=== PATIENT | female | born 1965 | race Caucasian/White ===

== ENCOUNTER → 2017-08-29 16:38 | Outpatient (CLI) | payer OTHER, SELFPAY ==
[2017-08-29 17:52] LABS: Thyroid Stim Hormone (TSH) 1.64 uIU/mL (0.358-3.74)
== END ==
LOC: LAB.FUTURE 16:38
PROVIDERS: Family Provider Family Medicine; PCP Family Medicine; Visit Provider Family Medicine
DX: E03.4 Atrophy of thyroid (acquired) (principal)
CPT/HCPCS: 36415; 84443

== ENCOUNTER → 2019-01-16 13:15 | Outpatient (CLI) | payer SELFPAY ==
[2019-01-16 15:17] LABS: Hemoglobin A1c 5.3 % (4.2-6.3)
== END ==
LOC: LAB.FUTURE 13:16 → LAB 13:25
PROVIDERS: Family Provider Family Medicine; PCP Family Medicine; Referring Provider Family Medicine; Visit Provider Family Medicine
DX: R73.09 Other abnormal glucose (principal); E03.4 Atrophy of thyroid (acquired)
CPT/HCPCS: 36415; 83036

== ENCOUNTER → 2019-01-17 10:43 | Outpatient (CLI) | payer SELFPAY ==
[2019-01-17 12:48] LABS: ALB/GLOB Ratio 0.9 RATIO (0.9-2.4); AST(SGOT) 11 U/L (15-37); Alanine Aminotransfer ALT/SGPT 18 U/L (13-56); Albumin, Serum 3.6 g/dL (3.2-5.0); Alkaline Phosphatase 77 U/L (45-117); Anion Gap 7 (5-15); BUN 27 mg/dL (7-18); BUN/Creat Ratio 34.2 RATIO (10-20); Calcium,Total 9.7 mg/dL (8.5-10.1); Chloride 106 mmol/L (98-107); Creatinine, Serum 0.79 mg/dL (0.55-1.02); EST Glomerular Filtration Rate 81 mL/min (>60); Est Glom Filt Rate - Afr Amer 99 mL/min (>60); Globulin 3.9 g/dL (2.2-4.2); Glucose 98 mg/dL (74-106); Potassium 4.4 mmol/L (3.5-5.1); Protein, Total 7.5 g/dL (6.4-8.2); Sodium Level 140 mmol/L (136-145); Thyroid Stim Hormone (TSH) 4.19 uIU/mL (0.358-3.74)
== END ==
LOC: LAB 10:43
PROVIDERS: Family Provider Family Medicine; PCP Family Medicine; Referring Provider Family Medicine; Visit Provider Family Medicine
DX: R73.09 Other abnormal glucose (principal); E03.4 Atrophy of thyroid (acquired)
CPT/HCPCS: 80053; 84443

== ENCOUNTER → 2019-04-09 17:54 | Outpatient (CLI) | payer SELFPAY ==
[2019-04-09 18:41] LABS: Thyroid Stim Hormone (TSH) 5.83 uIU/mL (0.358-3.74)
== END ==
LOC: LAB 17:55
PROVIDERS: PCP Family Medicine; Referring Provider Family Medicine; Visit Provider Family Medicine
DX: R07.9 Chest pain, unspecified (principal); E03.4 Atrophy of thyroid (acquired)
CPT/HCPCS: 36415; 84443; 84484

== ENCOUNTER → 2019-05-01 13:57 | Outpatient (CLI) | payer SELFPAY ==
--- NOTE | 2019-05-01 14:02 | ECHOD_ITS ---
Reason For Study: CHEST PAIN Procedure This was a 2D Doppler, Color Flow transthoracic echocardiogram. Exam performed in department. Left Ventricle Normal LV size. The estimated ejection fraction is 60 %. No evidence for diastolic dysfunction. No regional wall motion abnormalities noted. Right Ventricle Normal RV size. Normal systolic function. Atria Normal left atrium. Normal right atrium. No doppler evidence for ASD. Mitral Valve There is no mitral valve stenosis. No mitral valve insufficiency. Tricuspid Valve There is no tricuspid stenosis. Trivial tricuspid valve insufficiency. Pulmonary artery systolic pressure is 25 mmHg. Aortic Valve Trisinus/trileaflet aortic valve. There is no aortic stenosis. No aortic valve insufficiency. Pulmonic Valve There is no pulmonic valvular stenosis. Trivial pulmonic valve insufficiency. Great Vessels Normal aortic root. Pericardium/Pleural No pericardial effusion. MMode/2D Measurements & Calculations LVIDd: 4.3 cm IVSd: 0.81 cm Ao root diam: 3.4 cm LVIDs: 2.8 cm LVPWd: 0.80 cm RVDd: 3.2 cm FS: 34.6 % LAV(MOD-bp): 41.7 ml LA A4 area: 15.7 cm2 LA dimension(2D): 2.7 cm LAV(MOD-bp) Indexed: 24.0 ml/m2 LAV(MOD-sp2): 40.8 ml LAV(MOD-sp4): 41.5 ml RA A4 area: 11.8 cm2 Time Measurements MV dec time: 0.24 sec Doppler Measurements & Calculations MV E max edil: 99.0 cm/sec Lat Peak E' Edil: 10.5 cm/sec Med Peak E' Edil: 8.1 cm/sec MV A max edil: 83.5 cm/sec E/E' lat: 9.5 E/E' med: 12.3 MV E/A: 1.2 Ao V2 max: 122.4 cm/sec LV V1 max: 103.5 cm/sec TR max edil: 225.2 cm/sec Ao max P.0 mmHg LV V1 max P.3 mmHg TR max P.3 mmHg Interpretation Summary The estimated ejection fraction is 60 %. No evidence for diastolic dysfunction. Trivial tricuspid valve insufficiency. Pulmonary artery systolic pressure is 25 mmHg. Ordering Physician: Lázaro Mendenhall Referring Physician: Lázaro Mendenhall Performed By: Priscilla Harman, KINCS, RVT
== END ==
LOC: CVS 14:00
PROVIDERS: PCP Family Medicine; Referring Provider Family Medicine; Visit Provider Family Medicine
DX: R07.9 Chest pain, unspecified (principal)
CPT/HCPCS: 93306

== ENCOUNTER → 2021-10-19 | Outpatient (CLI) | payer SELFPAY ==
--- NOTE | 2021-10-19 17:08 | RAD_ITS ---
EXAM: XR LEFT ANKLE COMPLETE, 3 OR MORE VIEWS CLINICAL INDICATION: INJURY OF L ANKLE Technologist Notes PT STATES HER DOG T-BONED HER LEFT ANKLE. PAIN RADIATES UP LEFT LEG AND THROUGHOUT ANKLE JOINT. TECHNIQUE: Frontal, lateral and oblique views of the left ankle. This report was created using [employer] report generation technology. COMPARISON: None. FINDINGS: BONES/JOINTS: See below. SOFT TISSUES: Soft tissue swelling in the dorsum of the foot. Small avulsive fracture fragment of the dorsal aspect of the navicular bone. No radiopaque foreign body. RAD/Ankle min 3 Views IMPRESSION: Soft tissue swelling in the dorsum of the foot. Small avulsive fracture fragment of the dorsal aspect of the navicular bone. Electronically Signed: Filemon Goldsmith MD at 20:15 EDT Reading Location ID and State: [facility] / [place] , Service support ,
== END | disposition home or self-care (01) ==
LOC: RAD 17:02
PROVIDERS: PCP Family Medicine; Referring Provider Family Medicine; Visit Provider Family Medicine
DX: S99.912A Unspecified injury of left ankle, initial encounter (principal)
CPT/HCPCS: 73610

== ENCOUNTER → 2022-04-11 | Outpatient (CLI) | payer MEDICARE, SELFPAY ==
--- NOTE | 2022-04-11 12:37 | BI_ITS ---
MAMMOGRAPHY - BILATERAL SCREENING REASON FOR EXAM: Female, 57 years old. Routine annual screening examination. PERTINENT HISTORY: Non-contributory. TECHNIQUE: Digital bilateral breast flora (3D mammographic acquisition) in the CC and MLO projections. 2-D mediolateral oblique (MLO) and craniocaudad (CC) views of both breasts were obtained. CAD: Full Field Digital Mammography with Computer Added Detection was performed. COMPARISON: None. Baseline examination. FINDINGS: Breast Composition: There are scattered areas of fibroglandular density. There is an 8.2 mm x 10.4 mm nodular density in the slightly upper lateral aspect of the left breast. Correlation with ultrasound is recommended. No other significant abnormalities are identified. BI/SCRN MAMM (CAD)W/FLORA BILAT IMPRESSION: 8.2 mm x 10.4 mm nodular density in the slightly upper lateral aspect of the left breast. Correlation with ultrasound is recommended. ASSESSMENT CATEGORY: BIRADS Category 0: Incomplete. Need additional imaging evaluation. A letter regarding these results will be sent to the patient by the facility within 30 days. Approximately 10% of breast cancers are not detected by mammography. A normal mammogram should not delay biopsy of a clinically suspicious abnormality. [id number] Electronically Signed: Mane Carolina MD at 13:33 EST ,
== END | disposition home or self-care (01) ==
PROVIDERS: PCP Family Medicine; Visit Provider Family Medicine
DX: Z12.31 Encounter for screening mammogram for malignant neoplasm of breast (principal)
CPT/HCPCS: 77063; 77067

== ENCOUNTER → 2022-04-14 | Outpatient (CLI) | payer MEDICARE, SELFPAY ==
--- NOTE | 2022-04-14 09:32 | US_ITS ---
STUDY: ULTRASOUND BREAST - LEFT REASON FOR EXAM: Female, 57 years old. Abnormal screening mammogram. TECHNIQUE: Axial and longitudinal images of the LEFT breast were performed with a high resolution ultrasound transducer. # OF IMAGES: 53 COMPARISON: Comparison is made with prior mammogram dated 04/11/2022. FINDINGS: LEFT Breast: There is a 1.2 cm x 1 cm x 0.4 cm cyst in the slightly upper lateral aspect of the left breast. This corresponds to the mammographic findings. There is also evidence of dilated ducts. There is also evidence of a 4 mm x 3 mm x 2 mm cyst at the 3 o''clock position the breast at 6 cm from the nipple. US/Breast Limited Unilateral IMPRESSION: 2 small cysts are seen in the upper-outer quadrant of the left breast as described. Routine mammographic follow-up is recommended. ASSESSMENT CATEGORY: BIRADS Category 2: Benign. A letter regarding these results will be sent to the patient by the facility within 30 days. Electronically Signed: Mane Carolina MD at 8:52 EST ,
== END | disposition home or self-care (01) ==
LOC: OPUS 09:30
PROVIDERS: PCP Family Medicine; Referring Provider Family Medicine; Visit Provider Family Medicine
DX: N63.0 Unspecified lump in unspecified breast (principal); R92.8 Other abnormal and inconclusive findings on diagnostic imaging of breast
CPT/HCPCS: 76642

== ENCOUNTER → 2022-08-31 | Outpatient (CLI) | payer MEDICARE, SELFPAY ==
--- NOTE | 2022-08-31 18:03 | MRI_ITS ---
STUDY: MRI LEFT ANKLE WITHOUT CONTRAST REASON FOR EXAM: Female, 57 years old. Ankle pain. Evaluate for ligamentous tears. TECHNIQUE: Standardized fat and water weighted pulse sequences were obtained in all 3 orthogonal planes. COMPARISON: Ankle x-rays dated. October 19, 2021. FINDINGS: Normal subcutis adipose space. Normal posterior tibialis tendon. Normal flexor digitorum longus tendon. Normal flexor hallucis longus tendon. Normal peroneus longus and brevis tendons. Normal tibialis anterior tendon. Normal extensor hallucis longus tendon. Normal extensor digitorum longus tendons. Normal Achilles tendon and teno-osseous insertion. Normal plantar fascia. Normal plantar calcaneal tubercles. Normal intrinsic muscles of the rearfoot. Normal distal tibiofibular syndesmotic ligamentous complex. Normal lateral ligamentous complex. Normal subtalar ligaments and sinus tarsi. Normal deltoid ligamentous complexes. Normal plantar calcaneonavicular (spring) ligament. Tibiotalar joint effusion with small posterior ganglion cyst (sagittal series 8 images 7-12). Normal talar dome. Marked arthrosis of the subtalar joint with subchondral cyst formation and adjacent subchondral bone marrow edema (sagittal series 8 images 4-11, coronal series 9 images 8-15). Normal talonavicular articulation. Normal calcaneocuboid articulation. Normal navicular-cuneiform articulations. 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 Small tibiotalar joint effusion with posterior ganglion cyst. No other abnormality identified. Electronically Signed: See Aguero MD at 16:14 EDT ,
== END | disposition home or self-care (01) ==
LOC: MRI 17:57
PROVIDERS: PCP Family Medicine; Referring Provider Student in an Organized Health Care Education/Training Program; Visit Provider Student in an Organized Health Care Education/Training Program
DX: S82.435D Nondisplaced oblique fracture of shaft of left fibula, subsequent encounter for closed fracture with routine healing (principal); S92.902D Unspecified fracture of left foot, subsequent encounter for fracture with routine healing; M79.662 Pain in left lower leg
CPT/HCPCS: 73721

== ENCOUNTER 2025-01-30 04:54 | Emergency (ER) | payer MEDICARE, SELFPAY ==
[2025-01-30 04:55] VITALS: BP 140/83; PULSE 103; RESP 27; TEMP 36.4; O2SAT 98
[2025-01-30] MEDS: Albuterol 2.5 MG/3 ML VIAL.NEB. INHALATION (05:15)
[2025-01-30 05:17] VITALS: PULSE 88; RESP 18
--- NOTE | 2025-01-30 05:21 | EDS_ITS ---
HPI History of Present Illness Chief Complaint: Shortness of Breath Informant: patient and spouse/S.O. Narrative Narrative: Patient is a 59-year-old female with history of tobacco abuse COPD bipolar disorder and hypothyroidism. She states she has had 2 to 3 days of nasal congestion and cough. She reports she has been using her home inhaler with minimal symptom improvement. She states she felt that this morning symptoms were worsening and not responding to the inhaler and secondary to this she comes in for evaluation [facility] Medical History (Updated 01/30/25 @ 07:[address] Kenrick Mathur, DO) Hypothyroidism (acquired) Depression Bipolar disease, chronic Dry eye syndrome Environmental and seasonal allergies Chronic obstructive pulmonary disease Intermittent asthma without complication Menopausal symptom GERD (gastroesophageal reflux disease) Constipation Home Medications Medication Instructions Recorded Last Taken Type aspirin 81 mg tablet 81 mg PO QDAY 10/11/24 Unkno wn History fluticasone propionate 100 1 inh inhalation Q12H 10/11 Unknown History mcg/actuation blister powder for inhalation levothyroxine 150 mcg capsule 150 mcg PO QDAY 10/11/24 Unknown History montelukast 10 mg tablet 10 mg PO QHS 10/11/24 Unknow n History omeprazole 20 mg capsule,delayed 20 mg PO QDAY 5 Unknown History release albuterol sulfate 90 mcg/actuation 2 puff inhalation Q 4H PRN PRN 01/30/25 Unknown Rx aerosol inhaler (Ventolin HFA) Wheezing #1 device diazepam 5 mg tablet (Valium) 5 mg PO TID PRN anxiety 5 days #15 01/30/25 Unknown Rx tabs prednisone 20 mg tablet 40 mg (2 x 20 mg) PO DAILY 5 days 01/30/25 Unknown Rx #10 tabs Allergy/AdvReac Type Severity Reaction Status Date / Time insect venom (yellow jacket) Allergy Intermediate Other Verified 01/30/25 04:55 Family History (Updated 10/11/24 @ 13:26 by Nano Smith) Mother Asthma Diabetes COPD (chronic obstructive pulmonary disease) Liver cirrhosis Sister Anemia Surgical History Tubal ligation status History of arthroscopy of left shoulder H/O total hysterectomy History of delivery Social History (Updated 10/11/24 @ 13:27 by Nano Smith) Smoking Status: Former smoker quit date: 08/19/23 alcohol intake: never ROS ROS ED Constitutional Constitutional ED: Denies chills or fever(s) Eyes Eyes: Denies change in vision ENT ENT ED: Reports rhinorrhea and sore throat Cardiovascular Cardiovascular: Denies chest pain Respiratory/Chest Respiratory/Chest: Reports cough and dyspnea Gastrointestinal Gastrointestinal: Denies abdominal pain, diarrhea, nausea or vomiting Genitourinary Genitourinary ED: Denies dysuria Musculoskeletal Musculoskeletal: Reports myalgias Integumentary Denies rash Neurologic Neurologic: Denies headache(s) Psychiatric Psychiatric: Reports anxiety Hematologic/Lymphatic Hematologic/Lymphatic: Denies easy bleeding or easy bruising Allergic/Immunologic Allergic/Immunologic ED: Denies mouth swelling or tongue swelling EXAM Physical Exam Const Vital Signs: 01/30/25 04:55 01/30/25 05:05 01/30/25 05:17 Temperature 97.5 F L Temperature Source Temporal Pulse Rate 103 H 88 Respiratory Rate 27 H 18 Respiratory Effort Short of Breath Blood Pressure 140/83 H Blood Pressure Mean 102 Pulse Ox 98 Oxygen Delivery Method Room Air 01/30/25 06:56 Temperature 98.0 F Temperature Source Pulse Rate 80 Respiratory Rate 16 Respiratory Effort Blood Pressure 118/69 Blood Pressure Mean 85 Pulse Ox 93 Oxygen Delivery Method Positive well nourished and well developed General Appearance ED: well developed; Negative for pallor HEENT HEENT Narrative: Normocephalic atraumatic Nasal mucosa is hyperemic and boggy No tongue or lip swelling no oral lesions no airway edema or compromise Cobblestoning is noted in the posterior pharynx consistent with sinus drainage; no secondary findings to suggest infection Eyes PERRL and EOMs intact bilaterally General Eye ED: Negative for scleral icterus Neck supple and no JVD Resp Resp Narrative: Patient is tachypneic and breath sounds are diminished throughout with diffuse inspiratory and expiratory wheezing Cardio regular rate and regular rhythm Extremity normal to inspection Neuro oriented x3, CN's II-XII intact bilaterally and no sensory deficits noted Sensorium / Orientation: alert Motor Exam: strength 5/5 throughout Psych Mood & Affect: anxious Skin no rashes or lesions noted General Skin Exam: Negative for jaundice or pallor MDM MDM MDM Narrative Medical decision making narrative: Patient arrived to the ER satting 98 to 100% on room air but had increased work of breathing. Her exam and symptoms are most consistent with viral upper respiratory tract infection leading to a COPD exacerbation. We discussed swabbing for COVID influenza and RSV but patient does not want this performed. A chest x-ray was ordered to rule out pneumonia versus pneumothorax versus vascular congestion. X-ray revealed no acute finding. After receiving steroids and breathing treatments her work of breathing and breath sounds greatly improved and she reported feeling much better. Therefore at this time as she does not have pneumonia or hypoxia or need for noninvasive ventilation such as BiPAP I do not feel the need for further work and she is otherwise safe for discharge with symptomatic care History & Record Review Discussion w/independent historian: Patient and Significant other Radiography Diagnostic Testing: Clinical Impression(s) from Imaging Studies Chest X-Ray 01/30/25 05:31 IMPRESSION: No evidence for acute abnormality. Reading Location: [place] [id number] Chest x-ray as interpreted by the emergency medicine physician reveals no acute infiltrate pneumothorax or pleural effusion Discharge Plan Triage Chief Complaint: Shortness of Breath ED Provider: Kenrick Mathur Dx/Rx/DC Orders Clinical Impression: Acute exacerbation of chronic obstructive pulmonary disease, Hypothyroidism, Bipolar disorder Instructions: COPD: Wheezing and Chest Tightness Prescriptions: New prednisone 20 mg tablet 40 mg PO DAILY 5 Days Qty: 10 0RF albuterol sulfate [Ventolin HFA] 90 mcg/actuation HFA aerosol inhaler 2 puff inhalation Q4H PRN PRN (Reason: Wheezing) Qty: 1 0RF diazepam [Valium] 5 mg tablet 5 mg PO TID PRN (Reason: anxiety) 5 Days Qty: 15 0RF No Action levothyroxine 150 mcg capsule 150 mcg PO QDAY fluticasone propionate 100 mcg/actuation blister with device 1 inh inhalation Q12H montelukast 10 mg tablet 10 mg PO QHS omeprazole 20 mg capsule,delayed release(DR/EC) 20 mg PO QDAY aspirin 81 mg tablet 81 mg PO QDAY Primary Care Provider: Montserrat Taylor Referrals: Montserrat Taylor, [employer] [Primary Care Provider, Family Practice] Activity Restrictions/Additional Instructions: Please continue to use the albuterol inhaler to control bronchospasm and the oral steroid to reduce inflammation. Take the Valium to help with both anxiety as well as smooth muscle relaxation which will help you breathe easier. Use antibiotic to cover for any potentially underlying infection but your x-ray today reveals no sign of acute pneumonia. Return to the ER should you have any further concerns Print Language: Mozambican Disposition Disposition: Home, Self Care Discharge Date/Time: 01/30/25 06:57 D/C Safety Score for UGIB Assessment [place] Bleeding Score (GBS): Stratifies upper GI bleeding patients who are "low-risk" and candidates for outpatient management. Hemoglobin, BUN, Recent Vital Signs: Pulse Rate 80 Blood Pressure 118/69 Score Interpretation: Score of 0: A GBS of 0 is a “Low Risk” GI bleed, and is highly sensitive (99.6% in a 2007 retrospective study) for predicting which patients did not require any “medical intervention”: blood transfusion, endoscopy, or surgery. This was confirmed in a 2009 [facility] study where patients with a score of 0 were actually discharged and had no GI bleeding mortality at 6 month followup Score above 0: A GBS greater than zero suggests a “High Risk” GI bleed that is likely to require “medical intervention”: transfusion, endoscopy, or surgery. A higher GBS also correlated with a higher likelihood of needing intervention Scores >/= 6 are associated with >50% risk of needing intervention D/C Safety Score for LGIB Assessment Assessment Tool: Readmission and adverse event risk in patients with acute lower GI bleeding. Hemoglobin and Recent Vital Signs: Pulse Rate 80 01/30/25 06:56 Blood Pressure 118/69 01/30/25 06:56 Score Interpretation: Probability Percentage of safe discharge (absence of rebleeding, blood transfusion, therapeutic intervention, 28 day readmission, or ) Score of 8 or below: Consider discharge, with appropriate precautions. Score of 9 or above: Discharge NOT recommended. Consider admission with further workup and resuscitation as necessary.
--- NOTE | 2025-01-30 05:31 | RAD_ITS ---
PROCEDURE: CHEST PA AND LATERAL 01/30/2025 REASON FOR EXAM: COUGH TECHNIQUE: Procedure Code: RADCXR Modality: DX Procedure: CHEST PA AND LATERAL COMPARISON: None. FINDINGS: The lungs are expanded. There is no demonstrated parenchymal abnormality. There is no demonstrated pleural abnormality. Normal heart and pericardium. Normal mediastinum and cheri. Normal visualized pulmonary arteries. Normal visualized aortic arch and descending thoracic aorta. Normal visualized thoracic spine. Normal visualized ribs, clavicles, and shoulders. There is no demonstrated abnormality of the visualized soft tissue structures of the upper abdomen. RAD/Chest PA and Lateral IMPRESSION: No evidence for acute abnormality. Reading [facility]
--- OUTSIDE RECORDS SUMMARY | 2025-01-30 06:02 | XMS RPT_ITS | CCD ---
Author Organization [facility] Care Team Providers Care Lens Gauger Name Role Phone Lázaro Mendenhall Unavailable Solange Tracy Unavailable Unavailable Lázaro Mendenhall Primary Care Provider Lázaro Mendenhall Attending Unavailable Lázaro Mendenhall Referring Unavailable Lázaro Mendenhall Primary Care Unavailable Lázaro Mendenhall Attending Unavailable Lázaro Mendenhall Referring Unavailable Lázaro Mendenhall Primary Care Unavailable Lázaro Mendenhall Attending Unavailable Lázaro Mendenhall Primary Care Unavailable Bakari Mai Attending Unavailable Bakari Mai Referring Unavailable Lázaro Mendenhall Primary Care Unavailable DAYANARA MCKEON Consulting Unavailable REGGIE SLAUGHTER APRN Attending Unavailable REGGIE SLAUGHTER APRN Primary Care Unavailable REGGIE SLAUGHTER APRN Admitting Unavailable PROVIDER, UNKNOWN Consulting Unavailable PROVIDER, UNKNOWN Consulting Unavailable PROVIDER, UNKNOWN Consulting Unavailable Allergies Allergy Classification Reported Allergen(s) Allergy Type Date of Onset Reaction(s) Facility (1 source) buPROPion Drug Allergy 1 Swelling [facility] Work Phone: (1 source) Latex Propensity to adverse reactions 8 Rash [facility] Work Phone: (1 source) environmental allergies [Other] Propensity to adverse reactions 1 Itching [facility] Work Phone: Medications Current Medications Medication Drug Class(es) Dates Sig (Normalized) Sig (Original) buPROPion (1 source) Aminoketone Wellbutrin Quant ity: 0 Refills: 0 Ordered: 21-Sep-2020 Carleen Champion Generic Substitution Allowed cyclobenzaprine hydrochloride 5 mg oral tablet (1 source) Muscle Relaxant Start: 09-21-2020 End: 09-25-2020 take 1 tablet by mouth every eight hours cyclobenzaprine 5 mg oral tablet ; 1 tab(s) orally every 8 hours Quantity: 15 Refills: 0 Ordered: 21-Sep-2020 Solange Tracy Start: 21-Sep-2020 End: 25-Sep-2020 Generic Substitution Allowed Comments: Some non-prescription drugs may aggravate your condition. Read all labels carefully. If a warning appears, check with your doctor before taking.This drug may impair the ability to drive or operate machinery. Use care until you become familiar with its effects. Comment on above: Some non-prescriptio n drugs may aggravate your condition. Read all labels carefully. If a warning appears, check with your doctor before taking.This drug may impair the ability to drive or operate machinery. Use care until you become familiar with its effects. ibuprofen 600 mg oral tablet (1 source) Nonsteroidal Anti-inflammatory Drug Start: 09-21-2020 End: 09-30-2020 take 1 tablet by mouth every six hours ibuprofen 600 mg oral tablet ; 1 tab(s) orally every 6 hours Quantity: 40 Refills: 0 Ordered: 21-Sep-2020 Solange Tracy Start: 21-Sep-2020 End: 30-Sep-2020 Generic Substitution Allowed Comments: Do not take this drug if you are .It is very important that you take or use this exactly as directed. Do not skip doses or discontinue unless directed by your doctor.May cause drowsiness or dizziness.Obtain medical advice before taking any non-prescription drugs as some may affect the action of this medication.Take with food or milk. Comment on above: Do not take this micheal g if you are .It is very important that you take or use this exactly as directed. Do not skip doses or discontinue unless directed by your doctor.May cause drowsiness or dizziness.Obtain medical advice before taking any non-prescription drugs as some may affect the action of this medication.Take with food or milk. Completed/Discontinued Medications Medication Drug Class(es) Dates Sig (Normalized) Sig (Original) estradiol 2 mg oral tablet (1 source) Estrogen Start: 12-30-2010 take 1 tablet by mouth once daily estradiol (ESTRACE) 2 mg ORAL tablet Take 1 tablet by mouth once daily. 30 tablet 11 12/30/2010 Active Comment on above: Take 1 tablet by yen th once daily. fexofenadine hydrochloride 180 mg oral tablet (1 source) Histamine-1 Receptor Antagonist take 1 tablet by mouth once daily fexofenadine (TIMOTHY) 180 mg ORAL tablet Take 180 mg by mouth once daily. 0 Active Comment on above: Take 180 mg by mouth once daily. lamoTRIgine 200 mg oral tablet (1 source) Mood Stabilizer, Anti-epileptic Agent Start: 10-30-2008 lamotrigine(LAMICTA L 200 MG TAB) takes 1 at bedtime 0 10/30/2008 Active Comment on above: takes 1 at bedtime levothyroxine sodium 0.088 mg oral tablet (2 sources) l-Thyroxine Start: 10-30-2008 LEVOTHYROXINE 88 MCG TAB Take one(1) tablet daily. 0 10/30/2008 Active Synthroid Quanti ty: 0 Refills: 0 Ordered: 21-Sep-2020 Akira, Carleen Generic Substitution Allowed Comment on above: Take one(1) tablet d aily. LORazepam 0.5 mg oral tablet (1 source) Benzodiazepine Start: 09-18-19 11 take 1 tablet by mouth every eight hours as needed LORazepam (ATIVAN) 0.5 mg ORAL Tab Take 1 tablet by mouth three times daily as needed. 0 09/17/2010 Active Comment on above: Take 1 tablet by yen th three times daily as needed. MULTIVITAMIN TAB (1 source) Start: 10-31-19 09 MULTIVITAMIN TAB Take one(1) tablet daily. 0 10/30/2008 Active Comment on above: Take one(1) tablet d aily. omeprazole 20 mg delayed release oral capsule (2 sources) Proton Pump Inhibitor Start: 11-18-19 09 omeprazole(PRILOSEC 20 MG CAP) Indications: Dyspepsia Take one(1) capsule daily. 30 6 11/17/2008 Active omeprazole Quant ity: 0 Refills: 0 Ordered: 21-Sep-2020 Akira Carleen Generic Substitution Allowed Comment on above: Take one(1) capsule daily. polyethylene glycol 3350 60050 mg powder for oral solution (1 source) Osmotic Laxative Start: 2 Polyethylene Glycol 3350 (MIRALAX) 17 gram/dose ORAL powder Take by mouth once daily. 0 04/07/2011 Active Comment on above: Take by mouth once d aily. sertraline 50 mg oral tablet (2 sources) Serotonin Reuptake Inhibitor Start: 1 take 1 tablet by mouth once daily sertraline (ZOLOFT) 50 mg ORAL tablet Take 1 tablet by mouth once daily. 0 09/17/2010 Active Zoloft Quantity: 0 Refills: 0 Ordered: 21-Sep-2020 Akira, Carleen Generic Substitution Allowed Comment on above: Take 1 tablet by yen th once daily. traZODone hydrochloride 100 mg oral tablet (2 sources) Serotonin Reuptake Inhibitor Start: 10-30-2008 TRAZODONE 100 MG TAB takes 2 at bedtime daily and 1/2 tab in the am 0 10/30/2008 Active traZODone Quanti ty: 0 Refills: 0 Ordered: 21-Sep-2020 Akira, Carleen Generic Substitution Allowed Comment on above: takes 2 at bedtime d aily and 1/2 tab in the am ziprasidone 60 mg oral capsule (1 source) Atypical Antipsychotic Start: 10-30-2008 ziprasidone hcl(GEODON 60 MG CAP) takes 2 at bed time 0 10/30/2008 Active Comment on above: takes 2 at bed time Problems Active Problems Problem Classification Problem Date Documented Da te Episodic/Chronic Fracture of lower limb (1 source) Nondisplaced oblique fracture of shaft of left fibula, subsequent encounter for closed fracture with routine healing; Translations: [Nondisplaced oblique fracture of shaft of left fibula, subsequent encounter for closed fracture with routine healing] Onset: 09-05-2022 Episodic Mood disorders (1 source) Depressive disorder; Translations: [Depression] 09-17-2010 Chronic Other non-traumatic joint disorders (1 source) Pain in wrist; Translations: [Pain in joint, forearm] 09-21-2020 Episodic Thyroid disorders (1 source) Hypothyroidism, unspecified; Translations: [Hypothyroidism, unspecified] Onset: 08-13-2024 Chronic Unclassified (2 sources) LT WRIST INJURY 09-21-2020 Comment on above: LT WRIST INJURY Unclassified (1 source) Acute wrist pain 09-21-2020 Past or Other Problems Problem Classification Problem Date Documented Da te Episodic/Chronic Nonmalignant breast conditions (1 source) Unspecified lump in unspecified breast; Translations: [Unspecified lump in unspecified breast] Onset: 05-20-2022 Episodic Other injuries and conditions due to external causes (1 source) Unspecified injury of left ankle, initial encounter; Translations: [Unspecified injury of left ankle, initial encounter] Onset: 10-23-2021 Episodic Other screening for suspected conditions (not mental disorders or infectious disease) (1 source) Encounter for screening mammogram for malignant neoplasm of breast; Translations: [Encounter for screening mammogram for malignant neoplasm of breast] Onset: 04-20-2022 Episodic Results Test Name Value Interpretation Reference Range Facil ity CMP with eGFRon 08-13-2024 AGE 59 years Normal [facility] Comment on above: Performed By: #### 2 [id number] #### [facility],[address] [place] [address] 49575 Albumin [Mass/Vol] 3.9 g/dL Normal 3.4 - 5.0 [facility] Comment on above: Performed By: #### 2 69448 #### [facility],[address] [place] [address] 67993 Albumin/Globulin [Mass ratio] 1.1 {ratio} Normal 0.9 - 1.6 [facility] Comment on above: Performed By: #### 2 35051 #### [facility],[address] [place] [address] 20105 ALK PHOS 92 U/L Normal 46 - 116 [facility] Comment on above: Performed By: #### 2 18568 #### [facility],[address] [place] [address] 93484 ALT [Catalytic activity/Vol] 20 U/L Normal 16 - 63 [facility] Comment on above: Performed By: #### 2 00387 #### [facility],[address] [place] [address] 08115 Anion gap [Moles/Vol] 17 mmol/L Normal 10 - 20 [facility] Comment on above: Performed By: #### 2 70409 #### [facility],[address] [place] [address] 68742 AST [Catalytic activity/Vol] 18 U/L Normal 13 - 39 [facility] Comment on above: Performed By: #### 2 44675 #### [facility],[address] [place] [address] 22705 B/C RATIO 21 ratio Normal 0 - 30 [facility] Comment on above: Performed By: #### 2 78065 #### [facility],[address] [place] [address] 67361 Bilirubin [Mass/Vol] 0.4 mg/dL Normal 0.2 - 1.0 [facility] Comment on above: Performed By: #### 2 60195 #### [facility],[address] [place] [address] 38617 Calcium [Mass/Vol] 9.8 mg/dL Normal 8.5 - 10.1 [facility] Comment on above: Performed By: #### 2 15705 #### [facility],[address] [place] [address] 89087 Chloride [Moles/Vol] 104 mmol/L Normal 98 - 107 [facility] Comment on above: Performed By: #### 2 47473 #### [facility],[address] [place] [address] 56290 CMP with eGFR Normal [facility] Comment on above: Result Comment: COMP REHENSIVE METABOLIC PANEL Performed By: #### 2 57994 #### [facility],[address] [place] [address] 91495 CO2 [Moles/Vol] 25.3 mmol/L Normal 21.0 - 32.0 [facility] Comment on above: Performed By: #### 2 21900 #### [facility],[address] [place] [address] 37334 Creatinine [Mass/Vol] 0.80 mg/dL Normal 0.55 - 1.02 [facility] Comment on above: Performed By: #### 2 62471 #### [facility],[address] [place] [address] 84565 GFR/1.73 sq M.predicted among non-blacks MDRD (S/P/Bld) [Vol rate/Area] mL/min/{1.73_m2} Normal 60 - 999 [facility] Comment on above: Performed By: #### 2 87148 #### [facility],[address] [place] [address] 05540 Result Comment: ACCO RDING TO THE NATIONAL KIDNEY DISEASE EDUCATION PROGRAM(NKDE), A NORMAL eGFR IS A VALUE GREATER THAN OR EQUAL TO 60 ML/MIN/1.73 SQ METERS. CHRONIC KIDNEY DISEASE: <60mL/MIN/1.73 SQ METERS KIDNEY FAILURE: <15mL/MIN/1.73 SQ METERS THIS TEST SHOULD ONLY BE USED FOR PATIENTS 18 YEARS OF AGE AND OLDER. Globulin (S) [Mass/Vol] 3.4 g/dL Normal 1.5 - 3.8 [facility] Comment on above: Performed By: #### 2 03041 #### [facility],[address] [place] [address] 68072 Glucose [Mass/Vol] 100 mg/dL Normal 74 - 106 [facility] Comment on above: Performed By: #### 2 47107 #### [facility],[address] [place] [address] 64562 Potassium [Moles/Vol] 4.6 mmol/L Normal 3.5 - 5.1 [facility] Comment on above: Performed By: #### 2 01653 #### [facility],[address] [place] [address] 55681 Protein [Mass/Vol] 7.3 g/dL Normal 6.4 - 8.2 [facility] Comment on above: Performed By: #### 2 35233 #### [facility],[address] [place] [address] Sodium [Moles/Vol] 142 mmol/L Normal 136 - 145 [facility] Comment on above: Performed By: #### 2 01567 #### [facility],[address] [place] [address] 69768 Urea nitrogen [Mass/Vol] 17 mg/dL Normal 7 - 18 [facility] Comment on above: Performed By: #### 2 30919 #### [facility],[address] [place] [address] 62386 T4-FREE (FREE THYROXINE)on 08-13-2024 Free T4 [Mass/Vol] 1.26 ng/dL Normal 0.76 - 1.46 [facility] Comment on above: Result Comment: P otential of falsely elevated results when biotin concentrations are > 10 ng/mL. Performed By: #### 2 09435 #### [place] [id number] TSHon 08-13-2024 TSH Qn 1.64 m[IU]/L Normal 0.35 - 3.74 [facility] Comment on above: Performed By: #### 2 71236 #### [place] [id number] Lower Ext Joint Only (Routin e)on 08-31-2022 Lower Ext Joint Only (Routine) [facility] Imaging Services [address] [place] [address] 31431 Lower Ext Joint Only (Routine) MR#: [id number] Acct: [id number] Name: JANUSZ ARREOLA Rep #: [id number] : 1965 F 57 From: See Aguero MD PCP: Dr. Lázaro Mendenhall MD Status: REG CLI Study: Lower Ext Joint Only (Routine) Date of Exam: 0 08/31/22 Exam# [id number] Ordering Dr: Bakari Mai DPClaire STUDY: MRI LEFT ANKLE WITHOUT CONTRAST REASON FOR EXAM: Female, 57 years old. Ankle pain. Evaluate for ligamentous tears. TECHNIQUE: Standardized fat and water weighted pulse sequences were obtained in all 3 orthogonal planes. COMPARISON: Ankle x-rays dated. October 19, 2021. FINDINGS: Normal subcutis adipose space. Normal posterior tibialis tendon. Normal flexor digitorum longus tendon. Normal flexor hallucis longus tendon. Normal peroneus longus and brevis tendons. Normal tibialis anterior tendon. Normal extensor hallucis longus tendon. Normal extensor digitorum longus tendons. Normal Achilles tendon and teno-osseous insertion. Normal plantar fascia. Normal plantar calcaneal tubercles. Normal intrinsic muscles of the rearfoot. Normal distal tibiofibular syndesmotic ligamentous complex. Normal lateral ligamentous complex. Normal subtalar ligaments and sinus tarsi. Normal deltoid ligamentous complexes. Normal plantar calcaneonavicular (spring) ligament. Tibiotalar joint effusion with small posterior ganglion cyst (sagittal series 8 images 7-12). Normal talar dome. Marked arthrosis of the subtalar joint with subchondral cyst formation and adjacent subchondral bone marrow edema (sagittal series 8 images 4-11, coronal series 9 images 8-15). Normal talonavicular articulation. Normal calcaneocuboid articulation. Normal navicular-cuneiform articulations. 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 Small tibiotalar joint effusion with posterior ganglion cyst. No other abnormality identified. Electronically Signed: See Aguero MD at 16:14 EDT , CC: AMILCAR Mai; Dr. Lázaro Mendenhall MD Architect Naval: Signed Normal [facility] Huyen 06-16-2022 CNPN Telephone ([employer]) JANUSZ ARREOLA ([id number]) 1965 F Date Time Provider Department 06/16/22 RADHA ROBERTS During your visit today, we recorded the following information about you: Clari Tierney RN 06/16/2022 11:42 AM Signed Received request from Dr. Lázaro Mendenhall's office for the consultation note for Janusz. Janusz was scheduled to see Dr. Roberts on 05/10/2022, but cancelled that visit and did not reschedule. Note sent to office. Fax confirmation sheet received. Clari Tierney RN Allergies As of Date: 06/16/2022 Noted Allergy Reaction environmental allergies [Other] 09/17/2010 9 - Itching LATEX 08/06/2007 2 - Rash WELLBUTRIN (BUPROPION HCL) 09/17/2010 7 - Swelling Date Reviewed: 12/30/2010 Reviewed by: Zahra Jaimes Lpn - Fully Assessed Reason for Visit: Medical Records [Other] Prescriptions as of 06/16/2022 - Polyethylene Glycol 3350 (MIRALAX) 17 gram/dose ORAL powder Take by mouth once daily. - fexofenadine (TIMOTHY) 180 mg ORAL tablet Take 180 mg by mouth once daily. - estradiol (ESTRACE) 2 mg ORAL tablet Take 1 tablet by mouth once daily. - LORazepam (ATIVAN) 0.5 mg ORAL Tab Take 1 tablet by mouth three times daily as needed. - sertraline (ZOLOFT) 50 mg ORAL tablet Take 1 tablet by mouth once daily. - omeprazole(PRILOSEC 20 MG CAP) Take one(1) capsule daily. - ziprasidone hcl(GEODON 60 MG CAP) takes 2 at bed time - LEVOTHYROXINE 88 MCG TAB Take one(1) tablet daily. - TRAZODONE 100 MG TAB takes 2 at bedtime daily and 1/2 tab in the am - lamotrigine(LAMICTAL 200 MG TAB) takes 1 at bedtime - MULTIVITAMIN TAB Take one(1) tablet daily. Problem List As Of Date 06/16/2022 Noted Resolved Depression [F32.A] Encounter Status:Closed by CLARI TIERNEY on 06/16/22 Normal [facility] CNCOon 04-29-2022 CNCO Letter Text Normal [facility] Breast Limited Unilateralon 04-14-2022 Breast Limited Unilateral [facility] Imaging Services [address] [place] [address] Breast Limited Unilateral MR#: [id number] Acct: [id number] Name: JANUSZ ARREOLA Rep #: [id number] : 1965 F 57 From: Mane haynes MD PCP: Dr. Lázaro Mendenhall MD Status: REG CLI Study: Breast Limited Unilateral Date of Exam: Exam# [id number] Ordering Dr: Lázaro Mendenhall MD STUDY: ULTRASOUND BREAST - LEFT REASON FOR EXAM: Female, 57 years old. Abnormal screening mammogram. TECHNIQUE: Axial and longitudinal images of the LEFT breast were performed with a high resolution ultrasound transducer. # OF IMAGES: 53 COMPARISON: Comparison is made with prior mammogram dated 04/11/2022. FINDINGS: LEFT Breast: There is a 1.2 cm x 1 cm x 0.4 cm cyst in the slightly upper lateral aspect of the left breast. This corresponds to the mammographic findings. There is also evidence of dilated ducts. There is also evidence of a 4 mm x 3 mm x 2 mm cyst at the 3 o''clock position the breast at 6 cm from the nipple. US/Breast Limited Unilateral IMPRESSION: 2 small cysts are seen in the upper-outer quadrant of the left breast as described. Routine mammographic follow-up is recommended. ASSESSMENT CATEGORY: BIRADS Category 2: Benign. A letter regarding these results will be sent to the patient by the facility within 30 days. Electronically Signed: Mane Carolina MD at 8:52 EST , CC: Dr. Lázaro Mendenhall MD Architect Naval: Signed Normal [facility] SCRN MAMM (CAD)W/FLORA BILATo n 04-11-2022 SCRN MAMM (CAD)W/FLORA BILAT [facility] Imaging Services [address] [place] [address] SCRN MAMM (CAD)W/FLORA BILAT MR#: [id number] Acct: [id number] Name: JANUSZ ARREOLA Rep #: [id number] : 1965 F 57 From: Mane haynes MD PCP: Dr. Lázaro Mendenhall MD Status: REG CLI Study: SCRN MAMM (CAD)W/FLORA BILAT Date of Exam: 03/21 06/09 Exam# [id number] Ordering Dr: Lázaro Mendenhall MD MAMMOGRAPHY - BILATERAL SCREENING REASON FOR EXAM: Female, 57 years old. Routine annual screening examination. PERTINENT HISTORY: Non-contributory. TECHNIQUE: Digital bilateral breast flora (3D mammographic acquisition) in the CC and MLO projections. 2-D mediolateral oblique (MLO) and craniocaudad (CC) views of both breasts were obtained. CAD: Full Field Digital Mammography with Computer Added Detection was performed. COMPARISON: None. Baseline examination. FINDINGS: Breast Composition: There are scattered areas of fibroglandular density. There is an 8.2 mm x 10.4 mm nodular density in the slightly upper lateral aspect of the left breast. Correlation with ultrasound is recommended. No other significant abnormalities are identified. BI/SCRN MAMM (CAD)W/FLORA BILAT IMPRESSION: 8.2 mm x 10.4 mm nodular density in the slightly upper lateral aspect of the left breast. Correlation with ultrasound is recommended. ASSESSMENT CATEGORY: BIRADS Category 0: Incomplete. Need additional imaging evaluation. A letter regarding these results will be sent to the patient by the facility within 30 days. Approximately 10% of breast cancers are not detected by mammography. A normal mammogram should not delay biopsy of a clinically suspicious abnormality. [id number] Electronically Signed: Mane Carolina MD at 13:33 EST , CC: Dr. Lázaro Mendenhall MD Architect Naval: Signed Normal [facility] Ankle min 3 Viewson 10-20-19 Ankle min 3 Views [facility] Imaging Services [address] [place] [address] Ankle min 3 Views MR#: [id number] Acct: [id number] Name: JANUSZ ARREOLA Rep #: [id number] : 1965 F 56 From: Filemon Harris PCP: Dr. Lázaro Mendenhall MD Status: REG CLI Study: Ankle min 3 Views Date of Exam: 10/19/21 Exam# [id number] Ordering Dr: Lázaro Mendenhall MD EXAM: XR LEFT ANKLE COMPLETE, 3 OR MORE VIEWS CLINICAL INDICATION: INJURY OF L ANKLE Technologist Notes PT STATES HER DOG T-BONED HER LEFT ANKLE. PAIN RADIATES UP LEFT LEG AND THROUGHOUT ANKLE JOINT. TECHNIQUE: Frontal, lateral and oblique views of the left ankle. This report was created using [facility] report generation technology. COMPARISON: None. FINDINGS: BONES/JOINTS: See below. SOFT TISSUES: Soft tissue swelling in the dorsum of the foot. Small avulsive fracture fragment of the dorsal aspect of the navicular bone. No radiopaque foreign body. RAD/Ankle min 3 Views IMPRESSION: Soft tissue swelling in the dorsum of the foot. Small avulsive fracture fragment of the dorsal aspect of the navicular bone. Electronically Signed: Filemon Goldsmith MD at 20:15 EDT , CC: Dr. Lázaro Mendenhall MD Architect Naval: Signed Normal [facility] Provider Note - ED v2on 0 Provider Note - ED v2 Provider Note - ED v2: Chart Review: ED NOTES ED NOTES: Patient came in with complaints of left wrist pain. Patient says she fell down her stairs and landed on her wrist. Patient says her shoulder and elbow are a little sore but nothing too terrible patient says she is unable to do range of motion with her wrist. States extremely painful 9 out of 10. HISTORY OF PRESENTING ILLNESS JANUSZ is a 55 year old Female and was seen by me at 21-Sep-2020 10:38. The historian is the patient. Triage Information: Most recent Vital Sign Value Date PAST MEDICAL HISTORY ATTESTATION: I have reviewed and confirmed nurse's/medic's notes for patient's medications, allergies, and medical, surgical, family and social history PSYCHOSOCIAL SCREENING: NO: concerns for safety at home, feelings of depression, feels like hurting others and feels like hurting self ALLERGIES/INTOLERANCES: No Known Allergies HEALTH HISTORY: No documented data. OUTPATIENT MEDICATIONS: Home Medications Review Status for Reconciliation: Complete Med Status: Patient Currently Takes Medications Drug Name: Wellbutrin Instructions: null Drug Name: Synthroid Instructions: null Drug Name: traZODone Instructions: null Drug Name: Zoloft Instructions: null Drug Name: omeprazole Instructions: null Drug Name: ibuprofen 600 mg oral tablet Instructions: 1 tab(s) orally every 6 hours Drug Name: cyclobenzaprine 5 mg oral tablet Instructions: 1 tab(s) orally every 8 hours SIGNIFICANT EVENTS: No documented data. CLIENT SERVICES REPRESENTATIVE: Is : no Is : no REVIEW OF SYSTEMS MUSCULOSKELETAL: POSITIVE for: pain All other systems reviewed and are negative RESULTS/VITAL SIGNS RESULTS: Radiology Results: Patient Name: JANUSZ ARREOLA STUDY: Left wrist dated 09/21/2020 INDICATION: fall with pain and swelling COMPARISON: None. ACCESSION NUMBER(S): [id number] ORDERING CLINICIAN: SOLANGE TRACY TECHNIQUE: AP, lateral, oblique, and scaphoid radiograph(s) of the Left wrist. FINDINGS: No fracture or dislocation is evident. Soft tissues are grossly unremarkable. IMPRESSION: No acute osseous injury is evident. VITAL SIGNS: T PRBP SpO2O2(LPM) %FiO2 Method 21-Sep-2020 10:34:[id number] PHYSICAL EXAM CONSTITUTIONAL: Well appearing, well nourished, awake, alert, oriented to person, place, time/situation and in no apparent distress. HENMT: Airway patent, EYES: pupils are accommodating CARDIOVASCULAR: Normal rate, regular rhythm. Heart sounds S1, S2. No murmurs, rubs or gallops. PMI non-displaced. RESPIRATORY: Breath sounds clear and equal bilaterally. GASTROINTESTINAL: Abdomen soft, non-distended, no rebound, no guarding. Bowel sounds normal in all 4 quadrants. GENITOURINARY: No discharge, no lesions. MUSCULOSKELETAL: range of motion limited in left wrist with mild swelling. NEUROLOGICAL: Alert and oriented, no focal deficits, no motor or sensory deficits. SKIN: Skin normal color for race, warm, dry and intact. No evidence of trauma. PSYCHIATRIC: Alert and oriented to person, place, time/situation. normal mood and affect. No apparent risk to self or others. HEME/LYMPH: No adenopathy or splenomegaly. No cervical, supraclavicular or inguinal lymphadenopathy. CLINICAL IMPRESSION Diagnosis/Annotation: ED Dx Name:Acute wrist pain Code:M25.539 Disposition: discharged Type: home ATTESTATION Comments/Additional Findings: Patient's x-ray came back with no acute changes. Patient was called and updated. Patient was given a wrist splint to wear for comfort and told to rest ice and elevate. Patient was okay with this care plan patient will follow up with signs and symptoms seem being worse not better. CRITICAL CARE TIME Is this a critically ill patient: no Electronic Signatures: Solange Tracy (ELECTRICIAN'S ASSISTANT-MAGNETOMETER OPERATOR) (Signed 21-Sep-2020 12:44) Authored: ED Notes, HPI, PMH, ROS, PE, Results/Vital Signs, Clinical Impression, Attestation, Chart Review, Scores Last Updated: 21-Sep-2020 12:44 by Solange Tracy (ELECTRICIAN'S ASSISTANT-MAGNETOMETER OPERATOR) [facility] WRIST COMPLT MIN 3 VIEWSon 0 09-21-2020 WRIST COMPLT MIN 3 VIEWS Patient Name: JANUSZ ARREOLA STUDY: Left wrist dated 09/21/2020 INDICATION: fall with pain and swelling COMPARISON: None. ACCESSION NUMBER(S): [id number] ORDERING CLINICIAN: SOLANGE TRACY TECHNIQUE: AP, lateral, oblique, and scaphoid radiograph(s) of the Left wrist. FINDINGS: No fracture or dislocation is evident. Soft tissues are grossly unremarkable. IMPRESSION: No acute osseous injury is evident. Electronically signed by: ELVA CHUNG MD [facility] Vital Signs Date Time Vital Sign Value Performing Clinician Facility 09-21-2020 12:34-0400 Body height 157.4 cm Lázaro Mendenhall Other Phone: [facility] 09-21-2020 12:34-0400 Body temperature 98.06 [degF] Lázaro Mendenhall Other Phone: [facility] 09-21-2020 12:34-0400 Diastolic blood pressure 87 mm[Hg] Lázaro Mendenhall Other Phone: [facility] 09-21-2020 12:34-0400 Heart rate 80 /min Lázaro Mendenhall Other Phone: [facility] 09-21-2020 12:34-0400 Respiratory rate 16 /min Lázaro Mendenhall Other Phone: [facility] 09-21-2020 12:34-0400 SaO2% (BldA) [Mass fraction] 97 % Lázaro Mendenhall Other Phone: [facility] 09-21-2020 12:34-0400 Systolic blood pressure 121 mm[Hg] Lázaro Mendenhall Other Phone: [facility] Encounters Encounter Date Encounter Type Care Provider Facility Start: 08-13-2024 End: 08-13-2024 ambulatory DAYANARA MCKEON [facility] Start: 08-13-2024 Encounter for genera l adult medical examination without abnormal findings [facility] Start: 08-31-2022 End: 08-31-2022 Patient encounter procedure [facility] Start: 08-31-2022 End: 08-31-2022 ambulatory Bakari Mai [facility] Work Phone: Start: 06-16-2022 Telephone encounter Radha Gaviria MD Work Phone: General Surgery Comment on above: Medical Records Start: 04-14-2022 End: 04-14-2022 [facility] Work Phone: Start: 04-14-2022 End: 04-14-2022 Patient encounter procedure [facility] Ultrasound Start: 04-11-2022 End: 04-11-2022 ambulatory Lázaro [facility] Work Phone: Start: 04-11-2022 End: 04-11-2022 Patient encounter procedure [facility]-Outpatient Breast Imaging Start: 10-19-2021 End: 10-19-2021 Patient encounter procedure [facility]-Rad[facility], [facility] Start: 10-19-2021 End: 10-19-2021 ambulatory Lázaro Mendenhall Facility:[facility] Start: 09-21-2020 End: 09-21-2020 Emergency department patient visit Solange Tracy [facility] 02 Procedures Date Procedure Procedure Detail Performing Clinician Start: 08-31-2022 MRI of joint of lowe r extremity Start: 04-14-2022 Ultrasonography of breast Start: 04-11-2022 Screening mammography Start: 10-19-2021 Radiography of ankle Start: 01-13-2011 Mammography Radha Roberts MD Work Phone: Plan of Treatment Date Care Activity Detail Author Start: 03-20-2022 DEPRESSION ASSESSMENT DEPRESSION ASS ESSMENT [facility] Start: 11-18-2021 Influenza vaccination INFLUENZA (#1) [facility] Start: 2017 SHINGRIX VACCINE (1 of 2) SHINGRIX V ACCINE (1 of 2) [facility] Start: 06-21-2012 HPV TESTING HPV TESTING [facility] Start: 06-21-2012 PAP TESTING PAP TESTING [facility] Start: 2012 COLOGUARD (FIT-DNA) COLOGUARD (FIT-D NA) [facility] Start: 2012 Colonoscopy COLONOSCOPY [facility] Start: 2012 COLORECTAL CANCER SCREENING COLORECTAL CANCER SCREENING [facility] Start: [address] COLONOGRAPHY [facility] Start: 2012 DIABETES SCREEN DIABETES SCREEN [facility] Start: 2012 FECAL OCCULT BLOOD FECAL OCCULT BLOO D [facility] Start: 2012 LIPID SCREEN LIPID SCREEN [facility] Start: 2012 SIGMOIDOSCOPY SIGMOIDOSCOPY [facility] Start: 01-14-2012 Mammography MAMMOGRAM [facility] Start: 1986 Urine microalbumin profile DTAP,TDAP ,TD (1 - Tdap) [facility] Start: 1985 HEPATITIS C SCREENING HEPATITIS C SC REENING [facility] Start: 1985 HIV SCREENING HIV SCREENING [facility] Start: 1967 COVID-19 VACCINE (#1) COVID-19 VACCI NE (#1) [facility] Start: 1967 HEPATITIS B (1 of 3 - 3-dose series) HEPATITIS B (1 of 3 - 3-dose series) [facility] Payers Date Payer Category Payer Medicare UHC MEDICARE UHC [employer] PPO [id number] 2022-Present [phone] [address] [address] [place] [address] PPO [id number] 2021 Unknown [id number] 2021 Self-pay [id number] 2021 Unknown [id number] 1965 Unknown [id number] Unknown See Registration System\SELF PAY Medicare MEDICARE PART A B [id number] Medicare [id number] Unknown [id number] Unknown [id number] Unknown [id number] Unknown [id number] Unknown [id number] Social History Date Type Detail Facility [facility] Start: 03-11-2014 End: 03-11-2014 Tobacco smoking consumption unknown [facility] Start: 1965 Sex Assigned At Female [facility] Start: 12-30-2010 [facility] History of tobacco use Cigarette Smoker C [facility] Start: 12-30-2010 Cigarettes smoked current (pack per day) - Reported 1 [facility] Start: 12-30-2010 Tobacco use and exposure Smokeless tobacco non-user [facility] Start: 12-30-2010 Alcohol intake Current drinke r of alcohol (finding) [facility] Start: 09-17-2010 Alcohol Comment ocas/social [facility] Start: 1965 Sex Assigned At Not on file C [facility] Note 06-16-2022 Telephone Encounter - Clari Tierney RN - 06/16/2022 11:40 AM EDT Note Date & Type Note Facility 06-16-2022 Miscellaneous Notes Formattin g of this note might be different from the original. Received request from Dr. Lázaro Mendenhall's office for the consultation note for Janusz. Janusz was scheduled to see Dr. Roberts on 05/10/2022, but cancelled that visit and did not reschedule. Note sent to office. Fax confirmation sheet received. Clari Tierney RN documented in this encounter [facility] Evaluation note Note Date & Type Note Facility Evaluation note No assessment information availa ble [facility] Work Phone: Summary Purpose Family History No Family History Records FoundNo Family History Records FoundNo Family History Records FoundNo Family History Records Found Advance Directives No Advanced Directives Records FoundNo Advanced Directives Records FoundNo Advanced Directives Records FoundNo Advanced Directives Records Found Chief Complaint and Reason for Visit Chief Complaint INJURY TO LEFT ANKLE Chief Complaint SCREENING LEFT BREAST ABNORMAL MAMMO Chief Complaint Nondisplaced oblique fracture of shaft of left fib Additional Source Comments <item> Privacy Markings (unrecogniz ed section and content) Section Author: Sue Alicia PROHIBITION ON REDISCLOSURE OF CONFIDENTIAL INFORMATION This notice accompanies a disclosure of information concerning a client made to you with the consent of such client. INFORMATION SOURCE (unrecogn ized section and content) DATE CREATED AUTHOR 09/25/2020 [facility] DATE CREATED AUTHOR AUTHOR'S ORGANIZ ATION 06/21/2022 [facility] DATE CREATED AUTHOR AUTHOR'S ORGANIZ ATION 09/06/2022 [facility] DATE CREATED AUTHOR AUTHOR'S ORGANIZ ATION 08/16/2024 [facility] Goals (unrecognized section and content) Goals may be documented in a n alternate sectionGoals may be documented in an alternate sectionGoals may be documented in an alternate sectionGoals may be documented in an alternate section Care Teams (unrecognized sec tion and content) Team Status: Active Member Role Status Dates Dr. Lázaro Mendenhall MD Family Provider Active Dr. Lázaro Mendenhall MD Primary Care Provider Active Team Status: Inactive Member Role Status Dates Dr. Lázaro Mendenhall MD Primary Care Provider, Attendin g Provider Active Team Status: Active Member Role Status Dates Dr. Lázaro Mendenhall MD Primary Care Prov ider, Attending Provider, Referring Provider Active Team Status: Inactive Member Role Status Dates Dr. Lázaro Mendenhall MD Primary Care Prov ider, Attending Provider, Referring Provider Active [employer] Relationship Specialty Start Date End Date Lázaro Mendenhall PCP - General 07/18/06 Team Status: Inactive Member Role Status Dates Dr. Lázaro Mendenhall MD Primary Care Provider Active Dr. Bakari Mai DPM Attending Provider, [facility] Provider Active Source Comments (unrecognize d section and content) In the event this informatio n is protected by the Federal Confidentiality of Alcohol and Drug Abuse Patient Records regulations: The Federal rules restrict any use of the information to criminally investigate or prosecute any alcohol or drug abuse patient.[facility] Reason for Visit (unrecogniz ed section and content) Reason Comments Medical Records FOR RECORDS PERTAINING TO PATIENTS WHO ARE OR HAVE BEEN ENROLLED IN A CHEMICAL DEPENDENCY/SUBSTANCEABUSE PROGRAM, SOME INFORMATION MAY BE OMITTED. This clinical summary was aggregated from multiple sources. Caution should be exercised in using it in the provision of clinical care. This summary normalizes information from multiple sources, and as a consequence, information in this document may materially change the coding, format and clinical context of patient data. In addition, data may be omitted in some cases. CLINICAL DECISIONS SHOULD BE BASED ON THE PRIMARY CLINICAL RECORDS. [facility] [employer] [facility]. provides no warranty or guarantee of the accuracy or completeness of information in this document.
[2025-01-30] MEDS: Albuterol Sulfate 8 gm Inhaler (60 puffs) 2 PUFF INHALATION (06:54)
[2025-01-30 06:56] VITALS: BP 118/69; PULSE 80; RESP 16; TEMP 36.7; O2SAT 93
== END 2025-01-30 06:57 | disposition home or self-care (01) ==
PROVIDERS: Emergency Provider Emergency Medicine; PCP Nurse Practitioner Family; Visit Provider Emergency Medicine
DX: J44.1 Chronic obstructive pulmonary disease with (acute) exacerbation (principal); F31.9 Bipolar disorder, unspecified; Z87.891 Personal history of nicotine dependence; E03.9 Hypothyroidism, unspecified; K21.9 Gastro-esophageal reflux disease without esophagitis; F41.9 Anxiety disorder, unspecified
CPT/HCPCS: 71046; 94640; 99283

== ENCOUNTER 2025-02-13 21:23 | Emergency (ER) | payer MEDICARE, SELFPAY ==
[2025-02-13 21:23] VITALS: BP 132/83; PULSE 103; RESP 18; TEMP 36.9; O2SAT 95
[2025-02-13 21:28] VITALS: BP 132/83; PULSE 103; RESP 18; TEMP 36.9; O2SAT 95
[2025-02-13 21:29] VITALS: O2SAT 95
--- NOTE | 2025-02-13 21:29 | RAD_ITS ---
PROCEDURE: CHEST PA AND LATERAL 02/13/2025 REASON FOR EXAM: SOB TECHNIQUE: Procedure Code: RADCXR Modality: DX Procedure: CHEST PA AND LATERAL COMPARISON: 01/30/2025. FINDINGS: The lungs are clear. The cardiomediastinal silhouette appears unremarkable. No acute osseous abnormality. RAD/Chest PA and Lateral IMPRESSION: As above. Reading Location: [id number]
[2025-02-13 22:37] LABS: Hematocrit 42.3 % (37-47); Hemoglobin 14.4 g/dL (12.0-15.0); Immature Granulocytes Count 0.040 X10^3/uL (0.0-0.0); Mean Corp Hgb Conc 34.0 g/dL (32-36); Mean Corpuscular Volume 91.4 fL (81-99); Mean Platelet Vol. 10.0 fl (6.2-12.0); NRBC Flagged by Analyzer 0 % (0-5); Platelet Count 281 K/mm3 (150-450); RBC Distribution Width CV 13.9 % (11.6-14.6); RBC Distribution Width SD 47.2 fl (35.1-43.9); Red Blood Count 4.63 M/mm3 (4.2-5.4); White Blood Count 12.2 K/mm3 (4.4-11.0)
--- OUTSIDE RECORDS SUMMARY | 2025-02-13 22:57 | XMS RPT_ITS | CCD ---
Author Organization [facility] Care Team Providers Care Nursing Support Worker Name Role Phone Lázaro Mendenhall Unavailable Solange [...] (1 source) buPROPion Drug Allergy 1 Swelling [facility] Work Phone: (1 source) Latex Propensity to adverse reactions 8 Rash [facility] Work Phone: (1 source) environmental allergies [Other] Propensity to adverse reactions 1 Itching [facility] Work Phone: Medications Current Medications Medication Drug [...] Take one(1) capsule daily. polyethylene glycol 3350 08396 mg powder for oral solution (1 source) [...] with eGFRon 08-13-2024 AGE 59 years Normal [facility] Comment on above: Performed By: #### 2 [id number] #### [facility],[address] [place] [address] 28496 Albumin [Mass/Vol] 3.9 g/dL Normal 3.4 - 5.0 [facility] Comment on above: Performed By: #### 2 88110 #### [facility],[address] [place] [address] 15214 Albumin/Globulin [Mass ratio] 1.1 {ratio} Normal 0.9 - 1.6 [facility] Comment on above: Performed By: #### 2 [id number] #### [facility],[address] [place] [address] 60781 ALK PHOS 92 U/L Normal 46 - 116 [facility] Comment on above: Performed By: #### 2 61981 #### [facility],[address] [place] [address] 15228 ALT [Catalytic activity/Vol] 20 U/L Normal 16 - 63 [facility] Comment on above: Performed By: #### 2 48768 #### [facility],[address] [place] [address] 31366 Anion gap [Moles/Vol] 17 mmol/L Normal 10 - 20 [facility] Comment on above: Performed By: #### 2 08960 #### [facility],[address] [place] [address] 67290 AST [Catalytic activity/Vol] 18 U/L Normal 13 - 39 [facility] Comment on above: Performed By: #### 2 99018 #### [facility],[address] [place] [address] 49242 B/C RATIO 21 ratio Normal 0 - 30 [facility] Comment on above: Performed By: #### 2 40950 #### [facility],[address] [place] [address] 32902 Bilirubin [Mass/Vol] 0.4 mg/dL Normal 0.2 - 1.0 [facility] Comment on above: Performed By: #### 2 02365 #### [facility],[address] [place] [address] 36343 Calcium [Mass/Vol] 9.8 mg/dL Normal 8.5 - 10.1 [facility] Comment on above: Performed By: #### 2 93896 #### [facility],[address] [place] [address] 60312 Chloride [Moles/Vol] 104 mmol/L Normal 98 - 107 [facility] Comment on above: Performed By: #### 2 79659 #### [facility],[address] [place] [address] 54502 CMP with eGFR Normal [facility] Comment on above: Result Comment: COMP REHENSIVE METABOLIC PANEL Performed By: #### 2 35092 #### [facility],[address] [place] [address] 40774 CO2 [Moles/Vol] 25.3 mmol/L Normal 21.0 - 32.0 [facility] Comment on above: Performed By: #### 2 39339 #### [facility],[address] [place] [address] 76711 Creatinine [Mass/Vol] 0.80 mg/dL Normal 0.55 - 1.02 [facility] Comment on above: Performed By: #### 2 09443 #### [facility],[address] [place] [address] 07224 GFR/1.73 sq M.predicted among non-blacks MDRD (S/P/Bld) [Vol rate/Area] mL/min/{1.73_m2} Normal 60 - 999 [facility] Comment on above: Performed By: #### 2 64843 #### [facility],[address] [place] [address] 46038 Result Comment: ACCO RDING TO THE NATIONAL KIDNEY DISEASE EDUCATION PROGRAM(NKDE), A NORMAL eGFR IS A VALUE GREATER THAN OR EQUAL TO 60 ML/MIN/1.73 SQ METERS. CHRONIC KIDNEY DISEASE: <60mL/MIN/1.73 SQ METERS KIDNEY FAILURE: <15mL/MIN/1.73 SQ METERS THIS TEST SHOULD ONLY BE USED FOR PATIENTS 18 YEARS OF AGE AND OLDER. Globulin (S) [Mass/Vol] 3.4 g/dL Normal 1.5 - 3.8 [facility] Comment on above: Performed By: #### 2 09616 #### [facility],[address] [place] [address] 79627 Glucose [Mass/Vol] 100 mg/dL Normal 74 - 106 [facility] Comment on above: Performed By: #### 2 27441 #### [facility],[address] [place] [address] 05777 Potassium [Moles/Vol] 4.6 mmol/L Normal 3.5 - 5.1 [facility] Comment on above: Performed By: #### 2 32843 #### [facility],[address] [place] [address] 05132 Protein [Mass/Vol] 7.3 g/dL Normal 6.4 - 8.2 [facility] Comment on above: Performed By: #### 2 42571 #### [facility],[address] [place] [address] 31563 Sodium [Moles/Vol] 142 mmol/L Normal 136 - 145 [facility] Comment on above: Performed By: #### 2 26981 #### [facility],[address] [place] [address] 89256 Urea nitrogen [Mass/Vol] 17 mg/dL Normal 7 - 18 [facility] Comment on above: Performed By: #### 2 01609 #### [facility],[address] [place] [address] 45028 T4-FREE (FREE THYROXINE)on 08-13-2024 Free T4 [Mass/Vol] 1.26 ng/dL Normal 0.76 - 1.46 [facility] Comment on above: Result Comment: P otential of falsely elevated results when biotin concentrations are > 10 ng/mL. Performed By: #### 2 65691 #### [place] [id number] TSHon 08-13-2024 TSH Qn 1.64 m[IU]/L Normal 0.35 - 3.74 [facility] Comment on above: Performed By: #### 2 22107 #### [place] [id number] Lower Ext Joint Only (Routin e)on 08-31-2022 Lower Ext Joint Only (Routine) [facility] Imaging Services [address] [place] [address] 51490 Lower Ext Joint Only (Routine) MR#: [id number] Acct: [id number] Name: JANUSZ ARREOLA Rep #: [id number] : 1965 F 57 From: See Aguero MD PCP: Dr. Lázaro Mendenhall MD Status: REG CLI Study: Lower Ext Joint Only (Routine) Date of Exam: 0 08/31/22 Exam# [id number] Ordering Dr: Bakari Mai DPClaire STUDY: MRI [...] CC: AMILCAR Mai; Dr. Lázaro Mendenhall MD Cotton Stripper: Signed Normal [facility] Huyen 06-16-2022 CNPN Telephone (UniYuS) JANUSZ ARREOLA ([id number]) 1965 F Date Time Provider Department 06/16/22 [...] Status:Closed by CLARI TIERNEY on 06/16/22 Normal [facility] CNCOon 04-29-2022 CNCO Letter Text Normal [facility] Breast Limited Unilateralon 04-14-2022 Breast Limited Unilateral [facility] Imaging Services [address] [place] [address] Breast Limited Unilateral MR#: [id number] Acct: [id number] Name: JANUSZ ARREOLA Rep #: [id number] : 1965 F 57 From: Mane haynes MD PCP: Dr. Lázaro Mendenhall MD Status: REG CLI Study: Breast Limited Unilateral Date of Exam: Exam# [id number] Ordering Dr: Lázaro Mendenhall MD STUDY: ULTRASOUND [...] EST , CC: Dr. Lázaro Mendenhall MD Cotton Stripper: Signed Normal [facility] SCRN MAMM (CAD)W/FLORA BILATo n 04-11-2022 SCRN MAMM (CAD)W/FLORA BILAT [facility] Imaging Services [address] [place] [address] SCRN MAMM (CAD)W/FLORA BILAT MR#: [id number] Acct: [id number] Name: JANSUZ ARREOLA Rep #: [id number] : 1965 F 57 From: Mane haynes MD PCP: Dr. Lázaro Mendenhall MD Status: REG CLI Study: SCRN MAMM (CAD)W/FLORA BILAT Date of Exam: 03/21 06/09 Exam# [id number] Ordering Dr: Lázaro Mendenhall MD MAMMOGRAPHY - [...] delay biopsy of a clinically suspicious abnormality. [id number] Electronically Signed: Mane Carolina MD at 13:33 EST , CC: Dr. Lázaro Mendenhall MD Cotton Stripper: Signed Normal [facility] Ankle min 3 Viewson 10-20-19 Ankle min 3 Views [facility] Imaging Services [address] [place] [address] Ankle min 3 Views MR#: [id number] Acct: [id number] Name: JANUSZ ARREOLA Rep #: [id number] : 1965 F 56 From: Filemon Harris PCP: Dr. Lázaro Mendenhall MD Status: REG CLI Study: Ankle min 3 Views Date of Exam: 10/19/21 Exam# [id number] Ordering Dr: Lázaro Mendenhall MD EXAM: XR LEFT ANKLE COMPLETE, 3 OR MORE VIEWS CLINICAL INDICATION: INJURY OF L ANKLE Technologist Notes PT STATES HER DOG T-BONED HER LEFT ANKLE. PAIN RADIATES UP LEFT LEG AND THROUGHOUT ANKLE JOINT. TECHNIQUE: Frontal, lateral and oblique views of the left ankle. This report was created using [employer] report generation technology. COMPARISON: None. FINDINGS: BONES/JOINTS: [...] EDT , CC: Dr. Lázaro Mendenhall MD Cotton Stripper: Signed Normal [facility] Provider Note - ED v2on 0 Provider [...] 8 hours SIGNIFICANT EVENTS: No documented data. EXPERIMENTAL ELECTRONICS DEVELOPER: Is : no Is : no REVIEW OF SYSTEMS MUSCULOSKELETAL: POSITIVE for: pain All other systems reviewed and are negative RESULTS/VITAL SIGNS RESULTS: Radiology Results: Patient Name: JANUSZ ARREOLA STUDY: Left wrist dated 09/21/2020 INDICATION: fall with pain and swelling COMPARISON: None. ACCESSION NUMBER(S): [id number] ORDERING CLINICIAN: SOLANGE TRACY TECHNIQUE: AP, lateral, oblique, and scaphoid radiograph(s) of the Left wrist. FINDINGS: No fracture or dislocation is evident. Soft tissues are grossly unremarkable. IMPRESSION: No acute osseous injury is evident. VITAL SIGNS: T PRBP SpO2O2(LPM) %FiO2 Method 21-Sep-2020 10:34:[id number] 97 PHYSICAL EXAM CONSTITUTIONAL: Well appearing, well [...] ill patient: no Electronic Signatures: Solange Tracy (TOUR COUNSELOR-FUR STORAGE CLERK) (Signed 21-Sep-2020 12:44) Authored: ED Notes, HPI, PMH, ROS, PE, Results/Vital Signs, Clinical Impression, Attestation, Chart Review, Scores Last Updated: 21-Sep-2020 12:44 by Solange Tracy (TOUR COUNSELOR-FUR STORAGE CLERK) [facility] WRIST COMPLT MIN 3 VIEWSon 0 09-21-2020 WRIST COMPLT MIN 3 VIEWS Patient Name: JANUSZ ARREOLA STUDY: Left wrist dated 09/21/2020 INDICATION: fall with pain and swelling COMPARISON: None. ACCESSION NUMBER(S): [id number] ORDERING CLINICIAN: SOLANGE TRACY TECHNIQUE: AP, lateral, oblique, and scaphoid radiograph(s) of the Left wrist. FINDINGS: No fracture or dislocation is evident. Soft tissues are grossly unremarkable. IMPRESSION: No acute osseous injury is evident. Electronically signed by: ELVA CHUNG MD [facility] Vital Signs Date Time Vital Sign Value Performing Clinician Facility 09-21-2020 12:34-0400 Body height 157.4 cm Lázaro Mendenhall Other Phone: [facility] 09-21-2020 12:34-0400 Body temperature 98.06 [degF] Lázaro Mendenhall Other Phone: [facility] 09-21-2020 12:34-0400 Diastolic blood pressure 87 mm[Hg] Lázaro Mendenhall Other Phone: [facility] 09-21-2020 12:34-0400 Heart rate 80 /min Lázaro Mendenhall Other Phone: [facility] 09-21-2020 12:34-0400 Respiratory rate 16 /min Lázaro Mendenhall Other Phone: [facility] 09-21-2020 12:34-0400 SaO2% (BldA) [Mass fraction] 97 % Lázaro Mendenhall Other Phone: [facility] 09-21-2020 12:34-0400 Systolic blood pressure 121 mm[Hg] Lázaro Mendenhall Other Phone: [facility] Encounters Encounter Date Encounter Type Care Provider Facility Start: 08-13-2024 End: 08-13-2024 ambulatory DAYANARA MCKEON [facility] Start: 08-13-2024 Encounter for genera l adult medical examination without abnormal findings REGGIE SLAUGHTER [facility] Start: 08-31-2022 End: 08-31-2022 Patient encounter procedure [facility] Start: 08-31-2022 End: 08-31-2022 ambulatory Bakari Mai [facility] Work Phone: Start: 06-16-2022 Telephone encounter Radha Gaviria MD Work Phone: General Surgery Comment on above: Medical Records Start: 04-14-2022 End: 04-14-2022 [facility] Work Phone: Start: 04-14-2022 End: 04-14-2022 Patient encounter procedure [facility] Start: 04-11-2022 End: 04-11-2022 ambulatory Lázaro [facility] Work Phone: Start: 04-11-2022 End: 04-11-2022 Patient encounter procedure [facility]Outpatient Breast Imaging Start: 10-19-2021 End: 10-19-2021 Patient encounter procedure [facility]-Radiology, [facility] Start: 10-19-2021 End: 10-19-2021 ambulatory Lázaro Mendenhall Facility:[facility] Start: 09-21-2020 End: 09-21-2020 Emergency department patient visit Solange Tracy [facility] 02 Procedures Date Procedure Procedure Detail Performing Clinician Start: 08-31-2022 MRI of joint of lowe r extremity Start: 04-14-2022 Ultrasonography of breast Start: 04-11-2022 Screening mammography Start: 10-19-2021 Radiography of ankle Start: 01-13-2011 Mammography Radha Roberts MD Work Phone: Plan of Treatment Date Care Activity Detail Author Start: 03-20-2022 DEPRESSION ASSESSMENT DEPRESSION ASS ESSMENT [facility] Start: 11-18-2021 Influenza vaccination INFLUENZA (#1) [facility] Start: 2017 SHINGRIX VACCINE (1 of 2) SHINGRIX V ACCINE (1 of 2) [facility] Start: 06-21-2012 HPV TESTING HPV TESTING [facility] Start: 06-21-2012 PAP TESTING PAP TESTING [facility] Start: 2012 COLOGUARD (FIT-DNA) COLOGUARD (FIT-D NA) [facility] Start: 2012 Colonoscopy COLONOSCOPY [facility] Start: 2012 COLORECTAL CANCER SCREENING COLORECTAL CANCER SCREENING [facility] Start: [address] COLONOGRAPHY [facility] Start: 2012 DIABETES SCREEN DIABETES SCREEN [facility] Start: 2012 FECAL OCCULT BLOOD FECAL OCCULT BLOO D [facility] Start: 2012 LIPID SCREEN LIPID SCREEN [facility] Start: 2012 SIGMOIDOSCOPY SIGMOIDOSCOPY [facility] Start: 01-14-2012 Mammography MAMMOGRAM [facility] Start: 1986 Urine microalbumin profile DTAP,TDAP ,TD (1 - Tdap) [facility] Start: 1985 HEPATITIS C SCREENING HEPATITIS C SC REENING [facility] Start: 1985 HIV SCREENING HIV SCREENING [facility] Start: 1965 COVID-19 VACCINE (#1) COVID-19 VACCI NE (#1) [facility] Start: 1965 HEPATITIS B (1 of 3 - 3-dose series) HEPATITIS B (1 of 3 - 3-dose series) [facility] Payers Date Payer Category Payer Medicare UHC MEDICARE UHC [employer]AR [employer] PPO [id number] 2022-Present [phone] [address] [address] [place] [address] PPO [id number] 2021 Unknown [id number] 2021 Self-pay [id number] 2021 Unknown [id number] 1965 Unknown [id number] Unknown See Registration System\SELF PAY Medicare MEDICARE PART A B [id number] Medicare [id number] Unknown [id number] Unknown [id number] Unknown [id number] Unknown [id number] Unknown [id number] Social History Date Type Detail Facility [facility] Start: 03-11-2014 End: 03-11-2014 Tobacco smoking consumption unknown [facility] Start: 1965 Sex Assigned At Female [facility] Start: 12-30-2010 [facility] History of tobacco use Cigarette Smoker [facility] Start: 12-30-2010 Cigarettes smoked current (pack per day) - Reported 1 [facility] Start: 12-30-2010 Tobacco use and exposure Smokeless tobacco non-user [facility] Start: 12-30-2010 Alcohol intake Current drinke r of alcohol (finding) [facility] Start: 09-17-2010 Alcohol Comment ocas/social [facility] Start: 1965 Sex Assigned At Not on file C [facility] Note 06-16-2022 Telephone Encounter - Clari Tierney [...] sent to office. Fax confirmation sheet received. Clair Tierney RN documented in this encounter [facility] Evaluation note Note Date & Type Note Facility Evaluation note No assessment information availa ble [facility] Work Phone: Summary Purpose Family History No [...] section and content) DATE CREATED AUTHOR 09/25/2020 [facility] DATE CREATED AUTHOR AUTHOR'S ORGANIZ ATION 06/21/2022 [facility] DATE CREATED AUTHOR AUTHOR'S ORGANIZ ATION 09/06/[address] [facility] DATE CREATED AUTHOR AUTHOR'S ORGANIZ ATION 08/16/2024 [facility] Goals (unrecognized section and content) Goals may [...] Prov ider, Attending Provider, Referring Provider Active Nursing Support Worker Relationship Specialty Start Date End Date Lázaro Mendenhall PCP - General 07/18/06 Team Status: Inactive Member Role Status Dates Dr. Lázaro Mendenhall MD Primary Care Provider Active Dr. Bakari Mai DPM Attending [facility], [facility] Provider Active Source Comments (unrecognize d section and content) In the event this informatio n is protected by the Federal Confidentiality of Alcohol and Drug Abuse Patient Records regulations: The Federal rules restrict any use of the information to criminally investigate or prosecute any alcohol or drug abuse patient.[facility] Reason for Visit (unrecogniz ed section and [...] BE BASED ON THE PRIMARY CLINICAL RECORDS. [facility] [employer] [facility]. provides no warranty or guarantee of the accuracy or completeness of information in this document.
[2025-02-13 23:05] VITALS: O2SAT 95
[2025-02-13 23:07] VITALS: BP 132/82; PULSE 94; RESP 20; TEMP 36.9; O2SAT 96
[2025-02-13 23:12] LABS: Anion Gap 11 (5-15); BUN 17 mg/dL (4-19); BUN/Creat Ratio 16.4 RATIO (10-20); Calcium,Total 9.7 mg/dL (7.6-11.0); Carbon Dioxide 26.5 mmol/L (21.0-32.0); Chloride 102 mmol/L (98-108); Glucose 127 mg/dL (70-99); Potassium 4.4 mmol/L (3.3-5.1)
--- NOTE | 2025-02-13 23:31 | EX.ED.DYSGE1 ---
HPI History of Present Illness Chief Complaint: Shortness of Breath Informant: patient and spouse/S.O. Narrative Narrative: Patient is a 89-year-old female with past medical history of COPD secondary to smoking. She states she smoked roughly a pack a day for 40 years but quit roughly 2 weeks ago. She states that she has had increased congestion and cough and despite taking breathing medications that were prescribed by her family doctor has had persistent cough and shortness of breath sensation. She states when this comes on she also gets anxious will worsens her symptoms. She states she does not know if this is related to potential lung problems such as pneumonia or other issue and with this presents for evaluation [facility] Medical History (Updated 02/14/25 @ 03:[address] Kenrick Mathur, DO) Hypothyroidism (acquired) Depression Bipolar disease, chronic Dry eye syndrome Environmental and seasonal allergies Chronic obstructive pulmonary disease Intermittent asthma without complication Menopausal symptom GERD (gastroesophageal reflux disease) Constipation Home Medications ?Medication ?Instructions ?Recorded ?Last Taken ?Type aspirin 81 mg tablet 81 mg PO QDAY 10/11/24 Unknown History fluticasone propionate 100 1 inh inhalation Q12H 10/11/24 Unknown History mcg/actuation blister powder for inhalation levothyroxine 150 mcg capsule 150 mcg PO QDAY 10/11/24 Unknown History montelukast 10 mg tablet 10 mg PO QHS 10/11/24 Unknown History omeprazole 20 mg capsule,delayed 20 mg PO QDAY 10/11/24 Unknown History release albuterol sulfate 90 mcg/actuation 2 puff inhalation Q4H PRN PRN 01/30/25 Unknown Rx aerosol inhaler (Ventolin HFA) Wheezing #1 device diazepam 5 mg tablet (Valium) 5 mg PO TID PRN anxiety 5 days #15 01/30/25 Unknown Rx tabs prednisone 20 mg tablet 40 mg (2 x 20 mg) PO DAILY 5 days 01/30/25 Unknown Rx #10 tabs codeine 10 mg-guaifenesin 100 mg/5 10 ml PO 4X/DAY PRN cough 7 days 02/13/25 Unknown Rx mL oral liquid #280 mL diazepam 5 mg tablet (Valium) 5 mg PO TID PRN anxiety 5 days #15 02/13/25 Unknown Rx tabs Allergy/AdvReac Type Severity Reaction Status Date / Time insect venom (yellow jacket) Allergy Intermediate Other Verified 02/13/25 21:24 Family History (Updated 10/11/24 @ 13:26 by Nano Smith) Mother Asthma Diabetes COPD (chronic obstructive pulmonary disease) Liver cirrhosis Sister Anemia Surgical History Tubal ligation status History of arthroscopy of left shoulder H/O total hysterectomy History of delivery Social History (Updated 10/11/24 @ 13:27 by Nano Smith) Smoking Status: Former smoker quit date: 08/19/23 alcohol intake: never ROS ROS ED Constitutional Constitutional ED: Denies chills or fever(s) ENT ENT ED: Reports rhinorrhea and sore throat Cardiovascular Cardiovascular: Denies chest pain Respiratory/Chest Respiratory/Chest: Reports cough and dyspnea Gastrointestinal Gastrointestinal: Denies abdominal pain, diarrhea, nausea or vomiting Musculoskeletal Musculoskeletal: Denies myalgias Integumentary Denies rash Neurologic Neurologic: Denies headache(s) Psychiatric Psychiatric: Reports anxiety and depression Hematologic/Lymphatic Hematologic/Lymphatic: Denies easy bleeding or easy bruising Allergic/Immunologic Allergic/Immunologic ED: Denies mouth swelling or tongue swelling EXAM Physical Exam Const Vital Signs: 02/13/25 21:23 02/13/25 21:28 02/13/25 21:29 Temperature 98.4 F 98.4 F Temperature Source Oral Oral Pulse Rate 103 H 103 H Respiratory Rate 18 18 Blood Pressure 132/83 H 132/83 H Blood Pressure Mean 99 99 Pulse Ox 95 95 95 Oxygen Delivery Method Room Air Room Air 02/13/25 23:05 02/13/25 23:07 02/13/25 23:39 Temperature 98.4 F 97.6 F L Temperature Source Oral Pulse Rate 94 100 Respiratory Rate 20 H 25 H Blood Pressure 132/82 H 116/73 Blood Pressure Mean 98 87 Pulse Ox 95 96 100 Oxygen Delivery Method Room Air Room Air Positive well nourished and well developed General Appearance ED: well developed; Negative for pallor HEENT HEENT Narrative: Normocephalic atraumatic No tongue or lip swelling no oral lesions no airway edema or compromise Nasal mucosa is hyperemic and boggy There is cobblestoning noted in the posterior pharynx consistent with sinus; no secondary findings to suggest infection Eyes PERRL and EOMs intact bilaterally General Eye ED: Negative for scleral icterus Neck supple and no JVD Resp normal respiratory effort Resp Narrative: Breath sounds are diminished throughout with expiratory wheezing diffusely with faint rhonchi in the bilateral lobes However no nasal flaring retractions tachypnea or accessory muscle use. No dyspnea with speech Cardio regular rate and regular rhythm Rate: other Other Details: Radial and carotid pulses are equal and symmetric Extremity normal to inspection Extremity Narrative: No asymmetric edema no pitting edema negative Homans' sign bilaterally Neuro oriented x3, CN's II-XII intact bilaterally and no sensory deficits noted Sensorium / Orientation: alert Motor Exam: strength 5/5 throughout Psych Mood & Affect: anxious Skin no rashes or lesions noted General Skin Exam: Negative for jaundice or pallor MDM MDM MDM Narrative Medical decision making narrative: Patient presented to the ER no acute respiratory distress. She has a history of COPD but states that recently there has been increasing cough and congestion. In order to assess for pneumonia versus pneumothorax versus pleural effusion a chest x-ray was obtained. In order to rule out acute blood loss anemia acute kidney injury or electrolyte abnormality as a cause of her symptoms blood work was ordered. We discussed COVID influenza and RSV testing but patient does not want this performed. The patient's x-ray revealed no acute findings and her labs revealed no clinically significant changes either. She is already prescribed DuoNeb and albuterol nebulizer treatment. And chart review reveals she recently did a round of steroids so I do not want to place her on these at this time. She was given Robitussin with codeine in the ER and reported improvement of her cough. On reevaluation she is resting comfortably and remains in no acute respiratory distress and does not require need for supplemental oxygen. Therefore at this time I feel her symptoms are a combination of COPD exacerbation secondary to viral URI and anxiety. Therefore I will add guaifenesin with codeine to help reduce cough and Valium to help control anxiety but as she is not showing signs of sepsis or multilobar pneumonia or respiratory distress or hypoxia there is no need for admission and she is otherwise safe for discharge History & Record Review Discussion w/independent historian: Patient and Significant other Lab Data Attestation: I reviewed the patient's lab results. Labs: Laboratory Results - last 24 hr 02/13/25 22:29 WBC 12.2 H RBC 4.63 Hgb 14.4 Hct 42.3 MCV 91.4 MCH 31.1 MCHC 34.0 RDW Std Deviation 47.2 H RDW Coeff of Keenan 13.9 Plt Count 281 MPV 10.0 Immature Gran % (Auto) 0.300 Neut % (Auto) 76.9 H Lymph % (Auto) 13.3 L [place] % (Auto) 4.5 Eos % (Auto) 4.7 Baso % (Auto) 0.3 Absolute Neuts (auto) 9.4 H Absolute Lymphs (auto) 1.63 Nucleated RBC % 0 Sodium 140 Potassium 4.4 Chloride 102 Carbon Dioxide 26.5 Anion Gap 11 BUN 17 Creatinine 1.03 Est GFR (MDRD) Non-Af 63 BUN/Creatinine Ratio 16.4 Glucose 127 H Calcium 9.7 Radiography Diagnostic Testing: Clinical Impression(s) from Imaging Studies Chest X-Ray 02/13/25 21:29 IMPRESSION: As above. Reading Location: [facility] Chest x-ray as interpreted by the emergency medicine physician reveals COPD like changes without acute infiltrate pneumothorax or pleural effusion Discharge Plan Triage Chief Complaint: Shortness of Breath ED Provider: Kenrick Mathur Dx/Rx/DC Orders Clinical Impression: Acute exacerbation of chronic obstructive pulmonary disease, Bipolar disorder, Hypothyroidism, Anxiety Instructions: COPD: Wheezing and Chest Tightness, ED URI, Viral W/ Wheezing (Adult) Prescriptions: New diazepam [Valium] 5 mg tablet 5 mg PO TID PRN (Reason: anxiety) 5 Days Qty: 15 0RF codeine-guaifenesin 10-100 mg/5 mL liquid 10 ml PO 4X/DAY PRN (Reason: cough) 7 Days Qty: 280 0RF No Action levothyroxine 150 mcg capsule 150 mcg PO QDAY fluticasone propionate 100 mcg/actuation blister with device 1 inh inhalation Q12H montelukast 10 mg tablet 10 mg PO QHS omeprazole 20 mg capsule,delayed release(DR/EC) 20 mg PO QDAY aspirin 81 mg tablet 81 mg PO QDAY prednisone 20 mg tablet 40 mg PO DAILY 5 Days Qty: 10 0RF albuterol sulfate [Ventolin HFA] 90 mcg/actuation HFA aerosol inhaler 2 puff inhalation Q4H PRN PRN (Reason: Wheezing) Qty: 1 0RF diazepam [Valium] 5 mg tablet 5 mg PO TID PRN (Reason: anxiety) 5 Days Qty: 15 0RF Primary Care Provider: Montserrat Taylor Referrals: Montserrat Taylor, [facility] [facility] [Primary Care Provider, Family Practice] Activity Restrictions/Additional Instructions: Please take the prescribed medication as directed to help control your symptoms. At this time you have a repeat viral infection causing exacerbation of your COPD. This will usually last 2 to 3 weeks. Continue to take all of your medication as directed by your doctor and return to the ER should you have any further concerns Print Language: Macedonian Disposition Disposition: Home, Self Care Discharge Date/Time: 02/13/25 23:48
[2025-02-13 23:39] VITALS: BP 116/73; PULSE 100; RESP 25; TEMP 36.4; O2SAT 100
== END 2025-02-13 23:48 | disposition home or self-care (01) ==
PROVIDERS: Emergency Provider Emergency Medicine; PCP Nurse Practitioner Family; Visit Provider Emergency Medicine
DX: J44.1 Chronic obstructive pulmonary disease with (acute) exacerbation (principal); F31.9 Bipolar disorder, unspecified; F41.9 Anxiety disorder, unspecified; Z87.891 Personal history of nicotine dependence; E03.9 Hypothyroidism, unspecified; Z98.51 Tubal ligation status; Z90.710 Acquired absence of both cervix and uterus; K21.9 Gastro-esophageal reflux disease without esophagitis
CPT/HCPCS: 71046; 80048; 85025; 94760; 99283; A4216